=== PATIENT | male | born 1980 | race Hispanic/Latino ===

== ENCOUNTER 2019-03-08 09:32 | Observation (INO) | payer SELFPAY ==
[2019-03-08 12:59] LABS: #Basophils 0.1 thou/uL (0.0-0.2); #Eosinphils 0.1 thou/uL (0.0-0.7); #Lymphocytes 1.7 thou/uL (1.20-3.40); #Monocytes 0.7 thou/uL (0.11-0.59); #Neutrophils 5.5 thou/uL (1.40-6.50); %Basophils 1.2 % (0.0-1.0); %Eosinophils 1.5 % (0.0-10.0); %Lymphocytes 20.6 % (21.0-51.0); %Monocytes 8.8 % (0.0-10.0); %Neutrophils 67.9 % (42.0-75.0); Hemoglobin 15.9 g/dL (14.0-18.0); Mean Corpuscular HGB CONC 34.7 g/dL (32.0-36.0); Mean Corpuscular Hemoglobin 30.5 pg (27.0-31.0); Mean Corpuscular Volume 87.7 fL (78.0-98.0); Mean Platelet Volume 8.9 fL (7.4-10.4); Platelet Count 264 thou/uL (130-400); RBC Distribution Width 11.3 % (11.5-14.5); Red Blood Cell (RBC) Count 5.22 mill/uL (4.70-6.10); White Blood Cell (WBC) Count 8.1 thou/uL (4.8-10.8)
--- NOTE | 2019-03-08 12:59 | CT ---
CT Brain WO Con: 03/08/2019 12:33 PM CLINICAL HISTORY: Headache and right-sided numbness. IMAGING TECHNIQUE: Multiple CT images were obtained of the brain without IV contrast. COMPARISON: None. FINDINGS: Infarct: No acute infarct evident. Hemorrhage: None. Hydrocephalus: None.. Basal cisterns: Normal. Cerebral parenchyma: Normal. Midline shift: None. Cerebellum: Normal. Brainstem: Normal. OTHER: Calvarium: Normal. Visualized Paranasal sinuses: Clear. Extracranial soft tissues:Normal IMPRESSION: No acute intracranial abnormality.
--- NOTE | 2019-03-08 13:00 | RAD ---
Chest AP view INDICATION: Right-sided body numbness COMPARISON: None FINDINGS: Lungs:The lungs are clear Cardiac silhouette pulmonary vasculature:The cardiomediastinal silhouette appears within normal limit s. Pleural spaces:No pleural effusion or pneumothorax is demonstrated. Upper abdomen:No abnormality seen. Osseous structures: No acute osseous abnormality. Additional findings:None. IMPRESSION: No acute cardiopulmonary abnormality.
[2019-03-08 13:03] LABS: Bilirubin Negative (Negative); Blood, Urine Negative (Negative); Clarity CLEAR (Clear); Glucose, Urine (Dipstick) Negative (Negative); Leukocyte Negative (Negative); Nitrite Negative (Negative); Protein, Urine (Dipstick) Negative (Neg-Trace); Specific Gravity, Urine 1.014 (1.002-1.036); pH, Urine 7.5 (5.0-9.0)
[2019-03-08 13:17] LABS: ALT (SGPT) 199 U/L (8-55); AST (SGOT) 98 U/L (5-34); Albumin 4.8 g/dL (3.5-5.0); Alkaline Phosphatase 100 U/L (40-150); Anion Gap 12 mmol/L (10-20); BUN (Urea Nitrogen) 10 mg/dL (8.9-20.6); CK (CPK) 116 U/L (30-200); Calc. Creatinine Clearance 0 mL/min (70-130); Calcium 9.5 mg/dL (7.8-10.44); Carbon Dioxide 29 mmol/L (22-29); Chloride 102 mmol/L (98-107); Estimated GFR-MDRD 88; Globulin 3.1 g/dL (2.4-3.5); Glucose 95 mg/dL (70-105); Potassium 4.2 mmol/L (3.5-5.1); Protein, Total 7.9 g/dL (6.0-8.3); Sodium 139 mmol/L (136-145)
[2019-03-08] MEDS ORDERED: Aspirin 325 MG TAB ONE (13:58)
[2019-03-08] MEDS ORDERED: Aspirin Chewable 81 MG TAB ONE (14:01)
[2019-03-08 16:10] LABS: Troponin I Less than 0.010 ng/mL (< 0.028)
[2019-03-08] MEDS ORDERED: Ondansetron ODT 4 MG TAB PO PRN (17:45)
[2019-03-08] MEDS ORDERED: hydrALAZINE 20 MG/ML VIAL SLOW IVP PRN (17:45)
[2019-03-08 17:59] VITALS: BMI 27.1
--- NOTE | 2019-03-08 18:53 | ULT ---
EXAM: CAROTID ULTRASOUND: 03/08/19 HISTORY: Transient ischemic attack. COMPARISON: None. TECHNIQUE: Cabrera scale, color flow and Doppler imaging with spectral waveform analysis performed in the carotid a nd vertebral arteries. FINDINGS: RIGHT CAROTID: No significant atherosclerotic disease. Peak systolic velocity of the common carotid artery is 64.3 c m/s. Peak systolic velocity of the internal carotid artery is 62.9 cm/s. Systolic ICA to CCA ratio is 1.0. LEFT CAROTID: No significant atherosclerotic disease. Peak systolic velocity of the common carotid artery is 67 cm/ s. Peak systolic velocity of the internal carotid artery is 55.1 cm/s. Systolic ICA to CCA ratio is 0.82. Antegrade flow in both vertebral arteries. IMPRESSION: No sonographic evidence of hemodynamically significant stenosis. POS: SERAFIN
[2019-03-08 19:52] LABS: Troponin I Less than 0.010 ng/mL (< 0.028)
--- NOTE | 2019-03-08 22:01 | HP ---
CHIEF COMPLAINT: Right upper and right lower extremity weakness. HISTORY OF PRESENT ILLNESS: Mr. Lawrence Chen is a pleasant 38-year-old /Bolivian-speaking only male, with past medical history significant for untreated hypertension and hyperlipidemia, who presented to the hospital with complaints of right upper and right lower extremity weakness that began this morning. The patient states that he was shopping at [employer] when his symptoms began. 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 He reported that he "felt like the right side of his body was ." He had trouble taking a step, and dropped his wallet, which he was holding in the right hand. He had no slurred speech/dysarthria. He had no confusion. He did have some associated dizziness. He presented to the emergency room for further workup and treatment. His blood pressure on arrival was 193/109, pulse is 73. His O2 saturation was 100% on room air. His symptoms had largely resided by the time he arrived at the ER; however , he did have 2 recurrent episodes of right upper and right lower extremity tingling, which have now resolved. CT of his brain was negative. The patient states that he has been treated for hypertension and hyperlipidemia in the past; however, has not taken any medication recently. He was previously treated by a doctor in [place], but does not have a primary care physician here. Upon my interview, the patient's symptoms have all completely resolved. He has been given aspirin and Cardizem, and his blood pressure has trended down. REVIEW OF SYSTEMS: A 12-point review of system was performed and is negative except as stated above. He has had no recent fevers, illnesses. No sick contacts. No blood in his urine or stool. Review of systems is positive for occasional gastroesophageal reflux disease, which is symptomatic. ALLERGIES: NO KNOWN DRUG ALLERGIES. PAST MEDICAL HISTORY: 1. Hypertension. 2. Hyperlipidemia. 3. Gastroesophageal reflux disease. FAMILY HISTORY: The patient reports that his father had a CVA when he was [id number]. HOME MEDICATIONS: The patient takes no home medications. PAST SURGICAL HISTORY: The patient has had no previous surgeries. SOCIAL HISTORY: The patient is a nonsmoker. He denies any illicit drug use. He does admit to drinking approximately 6 beers per day. He is and has a 4-year-old son. He currently works in construction. PHYSICAL EXAMINATION: VITAL SIGNS: Blood pressure 147/89, pulse is 63, saturation is 97% on room air, patient is afebrile. GENERAL: The patient is a well-appearing young male in no acute distress, resting comfortably in the ER at the time of my interview. HEENT: Head is atraumatic and normocephalic. Mucous membranes are moist. Extraocular movements intact. NECK: Supple. No lymphadenopathy. No JVD. No carotid bruits. Trachea is midline. CV: S1 and S2. Regular rate rhythm. No appreciable murmurs, rubs, or gallops. LUNGS: Regular respiratory rate and pattern. Clear to auscultation bilaterally. ABDOMEN: Soft, positive bowel sounds, nontender. EXTREMITIES: No edema, +2 DP pulses bilaterally. SKIN: Warm and dry. No rashes or discolorations. NEUROLOGIC: The patient is awake, alert and oriented x3. Cranial nerves 2 through 12 are grossly intact. At the time of my evaluation, the patient is nonfocal, he has no focal weaknesses or lack of sensation. LABORATORY DATA: WBC 8.1, hemoglobin 15.9, hematocrit 45.8, platelet count is 264. Sodium 139, potassium 4.2, chloride 102, carbon dioxide 29, anion gap 12, BUN 10 , creatinine 0.96, calcium 9.5, AST 98, ALT 199, alkaline phosphatase 100. Troponin is negative x2. Urinalysis is negative. IMAGING RESULTS: 1. CT of the brain was negative for any intracranial abnormalities. 2. Chest x-ray, no acute cardiopulmonary abnormality. 3. EKG showed normal sinus rhythm, no acute ST or T-wave changes. Ventricular rate of 71. ASSESSMENT: 1. Right upper and lower extremity paresthesia and weakness consistent with transient ischemic attack. 2. Untreated hypertension. 3. Untreated hyperlipidemia. 4. Early family history of cerebrovascular accident. 5. Alcohol abuse, chronic. 6. Elevated liver function tests, likely secondary to above. 7. Gastroesophageal reflux disease. PLAN: We will admit the patient for CVA rule out and blood pressure control. We will obtain echocardiogram, MRI of brain and carotid Dopplers. We will order a fasting lipid panel in the morning; however, initiation of statin therapy may be problematic secondary to his elevated liver enzymes, we will recheck this in the morning. Regarding blood pressure control, we will start oral antihypertensives with Lotrel 5/10 one p.o. daily and titrate up. The care of this patient has been discussed with Dr. Amador who agrees with the plan as outlined above. Further recommendations based on hospital course. Job ID: [id number] JESSE
[2019-03-09 06:23] LABS: ALT (SGPT) 176 U/L (8-55); AST (SGOT) 80 U/L (5-34); Albumin 4.3 g/dL (3.5-5.0); Alkaline Phosphatase 89 U/L (40-150); Bilirubin, Direct 0.3 mg/dL (0.1-0.3); Bilirubin, Total 0.9 mg/dL (0.2-1.2); Cardiac Risk 4.2 (Less than 4.5); Cholesterol 216 mg/dl (< 200 Desired); HDL Cholesterol 51 mg/dL (>60 Neg Risk); LDL Cholesterol, Calculated 134 mg/dL; Protein, Total 7.5 g/dL (6.0-8.3); Triglycerides 157 mg/dL (Less than 150)
[2019-03-09] MEDS ORDERED: Aspirin 81 mg Enteric Coated Tablet PO SCH (09:00)
[2019-03-09] MEDS ORDERED: Amlodipine 5 mg/Benazepril 10 mg CAP PO SCH (09:00)
--- NOTE | 2019-03-09 14:32 | MRI ---
MRI Brain WO Con: 03/09/2019 5:43 PM CLINICAL HISTORY: Right-sided tingling and numbness. TECHNIQUE: Multiplanar, multisequence images were obtained of the brain. COMPARISON: CT brain dated March 08, 2019 FINDINGS: Extra axial spaces: Normal in size and morphology for the patient's age. Hemorrhage: None. Ventricular system: Normal in size and morphology for the patient's age. Basal cisterns: Normal. Cerebral parenchyma: Normal. Midline shift: None. Cerebellum: Normal. Brainstem: Normal. OTHER: Calvarium: Normal. Vascular system: Normal. Visualized Paranasal sinuses: Mild paranasal sinus disease. Visualized Orbits: Normal. Visualized upper cervical spine: Normal. Sella and skull base: Normal. IMPRESSION: No acute intracranial abnormality
[2019-03-09 15:46] VITALS: BP 130/84; TEMP 98.4
--- NOTE | 2019-03-10 01:00 | DIS ---
DATE OF ADMISSION: 03/08/2019 DATE OF DISCHARGE: 03/09/2019 PRIMARY CARE PROVIDER: None. DISCHARGE DIAGNOSES: 1. Right-sided numbness. 2. Dyslipidemia. 3. Abnormal liver function tests. CONDITION OF PATIENT ON THE DAY OF DISCHARGE: Stable. I assessed Mr. Bravo on the day of discharge. He denies any chest pain or shortness of breath. Right-sided numbness has resolved. Vital signs are stable. S1 and S2 are heard, regular. Lungs are clear to auscultation bilaterally. DISCHARGE MEDICATIONS: None. HOSPITAL COURSE: Mr. Bravo is a pleasant 38-year-old gentleman who was admitted to [facility] on 03/08/2019, for right-sided numbness. The numbness resolved following admission. Carotid Dopplers did not show any evidence of hemodynamically significant stenosis. MRI of the brain did not show any acute intracranial abnormality. He also had abnormal liver function tests with AST of 80 and ALT of 176 on the day of discharge. He drinks 6 beers a day. I have advised him to stop alcohol use. In terms of dyslipidemia, I have advised him to stick to a healthy diet for 3 months and have his LFTs rechecked through his primary care provider. He will seek primary care provider over the next few days. At the time of this discharge, the result for 2D echocardiogram is pending. I have advised him to follow up with primary care provider for the results. He is being provided with list of clinics in the area. DISCHARGE DESTINATION: Home. ADDENDUM: Mr. Bravo had elevated blood pressure during this hospitalization. He is being discharged home on amlodipine 5 mg daily. Job ID: [id number]
== END 2019-03-09 18:57 | disposition home or self-care (01) ==
LOC: ERS 09:32 → 2SW 14:32
PROVIDERS: ADMIT Internal Medicine; ATTEND Internal Medicine
DX: R20.0 Anesthesia of skin (principal); R20.2 Paresthesia of skin; R53.1 Weakness; R79.89 Other specified abnormal findings of blood chemistry; F10.10 Alcohol abuse, uncomplicated; I10 Essential (primary) hypertension; E78.5 Hyperlipidemia, unspecified; K21.9 Gastro-esophageal reflux disease without esophagitis
CPT/HCPCS: 36415; 70450; 70551; 71045; 80053; 80061; 80076; 81003; 82550; 84484; 85025; 93005; 93306; 93880; 94760; 96374; G0378

== ENCOUNTER 2022-03-24 12:43 | Emergency (ER) | payer SELFPAY ==
[2022-03-24] MEDS ORDERED: Acetaminophen 500 MG TAB ONE (13:18)
== END 2022-03-24 14:27 | disposition home or self-care (01) ==
LOC: ERS 12:43
DX: R20.2 Paresthesia of skin (principal); I10 Essential (primary) hypertension; R29.700 NIHSS score 0; E78.00 Pure hypercholesterolemia, unspecified
CPT/HCPCS: 70450; 93005